=== PATIENT | female | born 1970 | race Caucasian/White ===

== ENCOUNTER 2022-08-07 09:11 | Day surgery (SDC) | payer MEDICARE, OTHER, SELFPAY ==
[2022-08-07] VITALS (11 sets, daily range): BP systolic 129–147; BP diastolic 60–83; PULSE 72–104; RESP 10–16; TEMP 36.2–36.3; O2SAT 95–99; BMI 30.2
[2022-08-07 09:41] LABS: Basophils Absolute Auto 0.1 10^3/uL (0.0-0.1); Eosinophils Absolute Auto 0.2 10^3/uL (0.0-0.7); Eosinophils Percent Auto 1.5 % (0.9-7.0); Hematocrit 44.7 % (36.0-48.0); Hemoglobin 15.3 g/dL (12.0-16.0); Immature Granulocytes Abs Auto 0.07 10^3/uL (0.00-0.03); Immature Granulocytes Pct Auto 0.7 % (0.0-0.5); Lymphocytes Absolute Auto 2.2 10^3/uL (1.2-3.8); Lymphocytes Percent Auto 22.8 % (20.5-60.0); Mean Corpuscular HGB Conc 34.2 g/dL (29.9-35.2); Mean Corpuscular Hemoglobin 31.8 pg (26.7-34.0); Mean Corpuscular Volume 92.9 fL (81.0-99.0); Mean Platelet Volume 9.2 fL (9.5-13.5); Monocytes Absolute Auto 0.7 10^3/uL (0.3-0.8); Monocytes Percent Auto 7.4 % (1.7-12.0); Neutrophils Absolute Auto 6.5 10^3/uL (1.4-6.5); Neutrophils Percent Auto 66.6 % (43.0-75.0); Nucleated Red Blood Cells 0; Platelet Count 321 10^3/uL (150-450); Red Blood Count 4.81 10^6/uL (4.20-5.40); Red Cell Distribution Width 13.9 % (11.0-15.0); White Blood Count 9.7 10^3/uL (4.0-11.0)
[2022-08-07] MEDS: LACTATED RINGER'S SOLUTION 1,000 ML 50 ML IV ×2 (10:20→12:32)
--- NOTE | 2022-08-07 11:34 | PC.NURSE ---
Patient was placed of left side to perform block. on saphenous and popliteal block. oxygen applied per protocal. Stimuplex was applied. Patient was monitored throught out procedure and tolerated well. vitals remained within normal limits.
--- NOTE | 2022-08-07 11:43 | W.SUR.HO ---
Active Medications Generic Name Dose Route Start Last Admin Trade Name Freq PRN Reason Stop Dose Admin Lactated Ringer's 1,000 mls @ 50 mls/hr 08/07/22 07:01 08/07/22 10:20 Lactated Ringers IV 50 mls/hr .Q20H VERONICA Administration Respiratory Lung sounds [Bilateral clear Throughout] Pulse Oximetry 97 Oxygen Delivery Method Room Air Heart Sounds Heart Sounds [Left Apical] Regular Bowels Date of Last Bowel Movement 08/07/22 Renal Bladder Pattern Continent,Frequency Operation Date: 08/07/22 12:40 <No data on this case meets the specified criteria> 1119 positioned patient on left side and applied oxygen per protocol. stimuplex was applied. Vitals remained stable throughtout procedure and pattient tolerated kavin to saphenous and popliteal block well.
[2022-08-07] MEDS: CEFAZOLIN SODIUM/DEXTROSE,ISO 2 GM/50 ML PIGGYBACK IV (11:49)
--- NOTE | 2022-08-07 13:54 | XR_ITS ---
The [address] [address] Patient Name: EDMAR NGUYEN MRN: [id number] date: 1970 Sex: F Assigned Patient Location: [facility] Current Patient Location: [facility] Accession/Order Number: [id number] Exam Date: 08/07/2022 14:30 Report Date: 08/07/2022 15:00 At the request of: PREMA DOMÍNGUEZ Procedure: XR foot RT min 3V PROCEDURE: XR foot RT min 3V HISTORY: post-op fusion COMPARISON: XR foot right 08/07/2022 12:59 PM intraoperative images FINDINGS: BONES:Mechanical fusion of the first, second, third tarsal-metatarsal joints. No hardware fracture or appreciable bone fracture. SOFT TISSUES:Prominent dorsal soft tissue swelling. Images were obtained to cast material. EFFUSION:None visible. OTHER: Negative. IMPRESSION: 1. Intraoperative fusion of the second third tarsal-metatarsal joints. 2. Prior fusion of first tarsal-metatarsal joint. Electronically authenticated by: OXANA MAGALLON Date: 08/07/2022 15:00
--- NOTE | 2022-08-07 14:00 | XR_ITS ---
The [address] [address] Patient Name: EDMAR NGUYEN MRN: [id number] date: 1970 Sex: F Assigned Patient Location: [facility] Current Patient Location: [facility] Accession/Order Number: [id number] Exam Date: 08/07/2022 12:50 Report Date: 08/07/2022 14:47 At the request of: SAMSON LOPEZ Procedure: XR foot RT 2V PROCEDURE: XR foot RT 2V HISTORY: RT 2-3 TARSAL/METATARSAL FUSION COMPARISON: XR foot right 07/02/2022 FINDINGS: BONES:Multiple intraoperative spot fluoroscopic images demonstrate lag screw placement fixating the second and third tarsal-metatarsal joints, with the leg screw extending across the bases of the first, second, third metatarsals. SOFT TISSUES:Expected intraoperative findings. IMPRESSION: 1. Intraoperative fusion of the second third tarsal metatarsal joints. Prior fusion of the first tarsal-metatarsal joint. Electronically authenticated by: OXANA MAGALLON Date: 08/07/2022 14:47
--- NOTE | 2022-08-07 14:12 | P.ORON_ITS ---
Brief Operative Note Date of procedure: 08/07/22 Pre-op diagnosis: right midfoot arthritis, midfoot paresthesias Post-op diagnosis: same Procedure: Right 2nd and 3rd tarsometatarsal and intercuneiform joint fusions, application of short leg splint and intraoperative fluoroscopy examination PROCEDURE IN DETAIL: Patient was identified in pre op and consent was reviewed. Correct side and site were identified and marked. Pre-op antibiotics were started. Patient was brought to OR suite and place on table in a supine position. General anesthesia was administered. Tourniquet applied. Operative extremity was prepped and draped in usual sterile fashion. Formal time-out was performed and the foot/ankle were exsanguinated and tourniquet inflated. Incision was placed between the 2nd and 3rd tarsometatarsal joints. Combination sharp and blunt dissection gained access to these joints while protecting all neurovascular and tendinous structures. The 1st and 2nd tarsometatarsal joints as well as the two intercuneiform joints were prepared with osteotomes and rongeurs and curettes. Each joint was then drilled with a 2.0 mm drill bit. The surgical sites were irrigated with copious saline then was packed with bone allograft. The tarsal metatarsal joints were then reduced and manually compressed and fixated with a guidewire from the 2nd metatarsal base into the intermediate cuneiform then a 2nd wire was placed from the 3rd metatarsal base into the lateral cuneiform. Fluoroscopy confirmed wire placement and 4.0 mm headed cannulated screws were placed accordingly noting compression and achieving stable fixation. then a guidewire was placed from the medial cuneiform spanning the 1st intercuneiform joint and into the 3rd metatarsal base. Fluoroscopy confirmed wire placement and additional 4.0 mm cannulated screw was placed accordingly. All K wires were removed. Fluoroscopy confirmed hardware placement and surgical sites were irrigated with copious amounts of sterile saline. Incisions were closed in layers. A dry sterile dressing consisting of Xeroform on the incisions followed by 4 x 4 gauze, ABDs, and Kerlix were applied. Multiple layers of cast padding were then applied to ensure all bony prominences were well-padded. A plaster posterior splint was then applied which was held in place by Azar wraps. Capillary refill time to all digits was evaluated and had appropriate response. 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 Patient did have 1st tarsometatarsal joint fusion and outside hospital in [place] in 2016 and subsequent hardware removal. Since that time her dorsal midfoot pain has worsened and over the last six months has become difficult to perform activities of daily living and were normal shoes. She initially was treated nonoperatively with orthotics, alternative shoe lacing, shoe and activity modification as well as NSAIDs without much help. CT scan was obtained and demonstrated osseous fusion of the 1st tarsometatarsal joint with one retained buried screw as well as advanced arthritic changes to the 2nd tarsometatarsal joint and mild arthritic changes to the 3rd tarsometatarsal joint. Patient also related to numbness over the lump and her prior surgical site. She wished to pursue surgical intervention and she was advised that this numbness may not improve. In addition other complications include but not limited to wound, infection, pain, bleeding, nerve damage, numbness and tingling, painful hardware, malunion, nonunion, blood clot and need for additional surgery. consent was obtained Surgeon: Lorenzo López Associated symptoms: Reports none Use of anticoagulation agents: No Patient history: Reports see past medical history
[2022-08-07] MEDS: HYDROMORPHONE HCL 0.5 MG/0.5 ML SYRINGE IV ×2 (14:25→14:54)
[2022-08-07] MEDS: MEPERIDINE HCL/PF 25 MG/ML VIAL IVP (14:40)
[2022-08-07] MEDS: OXYCODONE HCL 5 MG TABLET PO (14:49)
[2022-08-07 14:52] LABS: Glucometer 102 mg/dL (74-106)
== END 2022-08-07 16:00 | disposition home or self-care (01) ==
PROVIDERS: Visit Provider Podiatrist Foot & Ankle Surgery
PROC: (CPT 28730; principal; 2022-08-07 12:40)
DX: M19.071 Primary osteoarthritis, right ankle and foot (principal); Z79.899 Other long term (current) drug therapy; F17.210 Nicotine dependence, cigarettes, uncomplicated; K21.9 Gastro-esophageal reflux disease without esophagitis; E78.00 Pure hypercholesterolemia, unspecified; M79.7 Fibromyalgia; Z98.1 Arthrodesis status
CPT/HCPCS: 28730; 36415; 64445; 64450; 73620; 73630; 76000; 76942; 82948; 85025; C1713; J1170; J2704

== ENCOUNTER 2022-09-11 11:18 | Outpatient (OUT) | payer MEDICARE, OTHER, SELFPAY ==
--- NOTE | 2022-09-11 | XR_ITS ---
[address] [address] Patient Name: EDMAR NGUYEN MRN: [id number] date: 1970 Sex: F Assigned Patient Location: [facility] Current Patient Location: Accession/Order Number: [id number] Exam Date: 09/11/2022 11:46 Report Date: 09/12/2022 07:24 At the request of: FRANCISCO GASTON Procedure: XR foot RT min 3V PROCEDURE: XR foot RT min 3V COMPARISON: 08/07/2022 HISTORY: RIGHT FOOT PAIN FINDINGS: BONES:Stable fusion of the first second and third tarsometatarsal joints with cannulated screws. No new fracture or dislocation. Mild permeative pattern suggest osteopenia. SOFT TISSUES:Negative. No visible soft tissue swelling. EFFUSION:None visible. OTHER: Negative. IMPRESSION: Stable midfoot forefoot fusion Electronically authenticated by: ELIZA ROACH Date: 09/12/2022 07:24
== END 2022-09-11 11:19 | disposition home or self-care (01) ==
LOC: RAD 11:19
PROVIDERS: Visit Provider Physician Assistant
DX: M79.671 Pain in right foot (principal)
CPT/HCPCS: 73630

== ENCOUNTER 2022-09-25 11:06 | Outpatient (OUT) | payer MEDICARE, OTHER, SELFPAY ==
--- NOTE | 2022-09-25 10:49 | XR_ITS ---
The [address] [address] Patient Name: EDMAR NGUYEN MRN: [id number] date: 1970 Sex: F Assigned Patient Location: [facility] Current Patient Location: [facility] Accession/Order Number: [id number] Exam Date: 09/25/2022 10:48 Report Date: 09/25/2022 15:50 At the request of: FRANCISCO GASTON Procedure: XR foot RT min 3V PROCEDURE: XR foot RT min 3V COMPARISON: 09/11/2022 HISTORY: RIGHT FOOT PAIN FINDINGS: BONES:Stable fusion of the first second and third tarsometatarsal joints. No acute fracture, dislocation or mechanical failure. Mild to moderate degenerative change first metatarsal-phalangeal joint SOFT TISSUES:Negative. No visible soft tissue swelling. EFFUSION:None visible. OTHER: Negative. XR/XR foot RT min 3V IMPRESSION: Stable midfoot forefoot fusion Electronically authenticated by: ELIZA ROACH Date: 09/25/2022 15:50
== END 2022-09-25 11:07 | disposition home or self-care (01) ==
LOC: RAD 11:07
PROVIDERS: Visit Provider Physician Assistant
DX: M20.11 Hallux valgus (acquired), right foot (principal)
CPT/HCPCS: 73630

== ENCOUNTER 2022-10-15 13:02 | Outpatient (OUT) | payer MEDICARE, OTHER, SELFPAY ==
--- NOTE | 2022-10-15 13:03 | XR_ITS ---
The [place] [id number] Patient Name: EDMAR NGUYEN MRN: [id number] date: 1970 Sex: F Assigned Patient Location: [facility] Current Patient Location: [facility] Accession/Order Number: [id number] Exam Date: 10/15/2022 13:03 Report Date: 10/15/2022 13:25 At the request of: SAMSON LOPEZ Procedure: XR foot RT min 3V PROCEDURE: XR foot RT min 3V DATE: 10/15/2022 12:03 PM CDT COMPARISONS: 09/25/2022 CLINICAL INDICATION: RIGHT FOOT PAIN FINDINGS: There is no evidence of fractures or other acute osseous abnormalities. Midfoot postop changes again identified, stable. Mild to moderate first metatarsal phalangeal degenerative changes again identified, stable. XR/XR foot RT min 3V IMPRESSION: Right foot radiographs show postop changes, stable from previous exam. Electronically authenticated by: JOHNIE TRIPLETT Date: 10/15/2022 13:25
== END 2022-10-15 13:03 | disposition home or self-care (01) ==
LOC: RAD 13:02
PROVIDERS: Visit Provider Podiatrist Foot & Ankle Surgery
DX: M19.071 Primary osteoarthritis, right ankle and foot (principal)
CPT/HCPCS: 73630

== ENCOUNTER 2022-11-13 09:10 | Outpatient (OUT) | payer MEDICARE, OTHER, SELFPAY ==
--- NOTE | 2022-11-13 | XR_ITS ---
The [place] [address] Patient Name: EDMAR NGUYEN MRN: [id number] date: 1970 Sex: F Assigned Patient Location: [facility] Current Patient Location: [facility] Accession/Order Number: [id number] Exam Date: 11/13/2022 09:25 Report Date: 11/13/2022 13:04 At the request of: FRANCISCO GASTON Procedure: XR foot LT min 3V STUDY: XR foot LT min 3V, [id number] HISTORY: RIGHT FOOT PAIN COMPARISON: None FINDINGS: No acute fracture, dislocation, or suspicious osseous lesion. Status post first through third tarsometatarsal joint fusion. There is bony bridging/ankylosis at the first and second tarsometatarsal joints. The joint space at the third tarsometatarsal joint remains open. Mild osteoarthritis at the fourth tarsometatarsal joint. Mild osteoarthritis at the first metatarsophalangeal joint. An os peroneum is present. Moderate Achilles insertional enthesopathy. 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 Electronically authenticated by: SAIRA GOMEZ Date: 11/13/2022 13:04
== END 2022-11-13 09:11 | disposition home or self-care (01) ==
LOC: RAD 09:10
PROVIDERS: Visit Provider Physician Assistant
DX: M79.671 Pain in right foot (principal)
CPT/HCPCS: 73630

== ENCOUNTER 2023-04-07 11:06 | Outpatient (OUT) | payer OTHER, SELFPAY ==
--- NOTE | 2023-04-07 | XR_ITS ---
The [address] [address] Patient Name: EDMAR NGUYEN MRN: [id number] date: 1970 Sex: F Assigned Patient Location: [facility] Current Patient Location: [facility] Accession/Order Number: [id number] Exam Date: 04/07/2023 11:56 Report Date: 04/07/2023 13:38 At the request of: SAMSON LOPEZ Procedure: XR foot RT min 3V PROCEDURE: XR foot RT min 3V COMPARISON: 10/15/2022 HISTORY: RIGHT FOOT PAIN FINDINGS: BONES:Stable fusion of the first second and third tarsometatarsal joints with multiple screws. Complete bony bridging of the first metatarsal-phalangeal joint with no significant bony bridging of the second or third. No acute fracture, dislocation or mechanical failure. Mild degenerative changes with joint space narrowing and marginal osteophyte formation most significant first metatarsal-phalangeal joint. Mild enthesopathic spurring of the calcaneus SOFT TISSUES:Negative. No visible soft tissue swelling. EFFUSION:None visible. OTHER: Negative. XR/XR foot RT min 3V IMPRESSION: Stable degenerative and postsurgical changes Electronically authenticated by: ELIZA ROACH Date: 04/07/2023 13:38
== END 2023-04-07 11:07 | disposition home or self-care (01) ==
LOC: RAD 11:08
PROVIDERS: Visit Provider Podiatrist Foot & Ankle Surgery
DX: M79.671 Pain in right foot (principal)
CPT/HCPCS: 73630